=== PATIENT | male | born 1955 | race Caucasian/White ===

== ENCOUNTER → 2018-08-02 | Outpatient (CLI) | payer MEDICARE, OTHER ==
--- NOTE | 2018-08-02 10:05 | PCVCIMAG ---
APPROVED REPORT Study performed: 08/02/2018 08:37:10 EXAM: Comprehensive 2D, Doppler, and color-flow Echocardiogram Patient Location: Echo lab Room #: 3Status: routine BSA: 2.00 HR: 57 bpmBP: 126/72 mmHg Rhythm: NSR Other Information Study Quality: Technically Difficult Indications COPD Dyspnea CAD Peripheral Edema Hx lung Ca w/ radiation, Hx old UT 2D Dimensions IVSd: 13.95 (7-11mm) LVDd: 51.63 mm PWd: 17.72 (7-11mm) LVDs: 35.48 (25-40mm) Left Atrium: 36.98 (27-40mm) LV Single Plane 4CH: 46.65 % LV Single Plane 2CH: 44.55 % Aortic Valve AoV Peak [place].: 0.92 m/s AO Peak Gr.: 3.41 mmHg Left Ventricle The left ventricle is normal size. Basal to mid inferoseptal wakk akinesis.apical Mild concentric left ventricular hypertrophy. Left ventricular systolic function is mild to moderately decreased. LVEF is approximately 40%. All views were off axis for measurement. Right Ventricle The right ventricle is normal size. The right ventricular systolic function is normal. Atria The left atrium size is normal. The right atrium size is normal. Aortic Valve Aortic valve is trileaflet. The aortic valve is normal in structure and function. No aortic regurgitation is present. There is no aortic valvular stenosis. Mitral Valve Mitral valve is not well visualized. There is no mitral valve regurgitation noted. No evidence of mitral valve stenosis. Tricuspid Valve The tricuspid valve is normal in structure. Trace tricuspid regurgitation. Pulmonic Valve The pulmonary valve is normal in structure. There is no pulmonic valvular regurgitation. Great Vessels Ascending aorta is not well visualized. IVC is normal in size and collapses >50% with inspiration. Pericardium There is no pericardial effusion. There is no pleural effusion. <Conclusion> The left ventricle is normal size. Basal to mid inferoseptal wakk akinesis.apical Left ventricular systolic function is mild to moderately decreased. LVEF is approximately 40%. All views were off axis for measurement. The right ventricle is normal size. The left atrium size is normal. Aortic valve is trileaflet. The aortic valve is normal in structure and function. There is no mitral valve regurgitation noted. There is no pericardial effusion.
--- NOTE | 2018-08-02 10:36 | PCVCIMAG ---
EXAM: AORTOILIAC DUPLEX INDICATION: Iliac aneurysm. FINDINGS: AORTA: Suprarenal aorta measures maximum diameter of 2.8 cm. There is not a fusiform infrarenal aortic aneurysm. The infrarenal aorta measures maximum diameter of 2.3 x 2.8 cm. No aortic stenosis. RIGHT COMMON ILIAC ARTERY: Maximum diameter is 1.7 x 2.1 cm. No significant stenosis. RIGHT EXTERNAL ILIAC ARTERY: No significant stenosis. LEFT COMMON ILIAC ARTERY: Maximum diameter is 1.4 x 1.8 cm. No significant stenosis. LEFT EXTERNAL ILIAC ARTERY: No significant stenosis. IMPRESSION: Ectasia infrarenal abdominal aorta measuring up to 2.8 cm in greatest diameter. 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 Ectasia distal left common iliac artery measures 1.8 cm in diameter. LOC:[id number]
== END | disposition home or self-care (01) ==
LOC: PCVCIMAG 08:02
PROVIDERS: ATTEND Internal Medicine Cardiovascular Disease
DX: I25.10 Atherosclerotic heart disease of native coronary artery without angina pectoris (principal); I25.5 Ischemic cardiomyopathy; E78.00 Pure hypercholesterolemia, unspecified; I10 Essential (primary) hypertension; J44.9 Chronic obstructive pulmonary disease, unspecified; I73.9 Peripheral vascular disease, unspecified; I77.811 Abdominal aortic ectasia; I72.3 Aneurysm of iliac artery; Z90.2 Acquired absence of lung [part of]; Z87.891 Personal history of nicotine dependence; Z72.89 Other problems related to lifestyle; Z79.82 Long term (current) use of aspirin
CPT/HCPCS: 80061; 93005; 93308; 93978; G0463

== ENCOUNTER → 2018-09-06 | Outpatient (CLI) | payer MEDICARE, OTHER ==
--- NOTE | 2018-09-06 15:52 | PCVCIMAG ---
EXAM: BILATERAL LOWER EXTREMITY ARTERIAL DUPLEX INDICATION: Peripheral Arterial Disease. Leg pain. FINDINGS: Right Leg: Common femoral profunda femoral arteries are patent. Superficial femoral artery. Increased systolic velocity 192 cm/s mid [place] popliteal artery increased from 47 cm/s consistent with 60-70% stenosis. Anterior tibial, peroneal, and posterior tibial arteries are patent. Left Leg: Satisfactory arterial waveforms throughout the common/profunda/superficial femoral, popliteal, anterior tibial, peroneal, and posterior tibial arteries. No flow limiting stenosis seen. IMPRESSION: 60-70% stenosis mid navajo right popliteal artery. Otherwise no flow limiting stenosis in the right lower extremity. No flow limiting stenosis in the left lower extremity. LOC:[id number]
== END | disposition home or self-care (01) ==
LOC: PCVCIMAG 13:19
PROVIDERS: ATTEND Internal Medicine Cardiovascular Disease
DX: I73.9 Peripheral vascular disease, unspecified (principal); I25.10 Atherosclerotic heart disease of native coronary artery without angina pectoris; I25.5 Ischemic cardiomyopathy; J44.9 Chronic obstructive pulmonary disease, unspecified; E78.00 Pure hypercholesterolemia, unspecified; I10 Essential (primary) hypertension; Z90.2 Acquired absence of lung [part of]; Z87.891 Personal history of nicotine dependence; Z79.82 Long term (current) use of aspirin
CPT/HCPCS: 80061; 93005; 93925; G0463

== ENCOUNTER → 2018-11-30 | Outpatient (CLI) | payer MEDICARE, OTHER | END | disposition home or self-care (01) | LOC: PCVCCLINIC 11:37 | PROVIDERS: ATTEND Internal Medicine Cardiovascular Disease | DX: I25.118 Atherosclerotic heart disease of native coronary artery with other forms of angina pectoris (principal); I71.9 Aortic aneurysm of unspecified site, without rupture; J44.9 Chronic obstructive pulmonary disease, unspecified; E78.00 Pure hypercholesterolemia, unspecified; I10 Essential (primary) hypertension; I25.5 Ischemic cardiomyopathy; I73.9 Peripheral vascular disease, unspecified; Z90.2 Acquired absence of lung [part of]; Z87.891 Personal history of nicotine dependence; Z79.82 Long term (current) use of aspirin | CPT/HCPCS: 93005; G0463 ==

== ENCOUNTER → 2019-03-01 | Outpatient (CLI) | payer MEDICARE, OTHER ==
[~2019-03-01] MED LIST: AMINOPHYLLINE 250 MG/10 ML VIAL. ONE; REGADENOSON 0.4 MG/5 ML DISP.SYRIN. IV ONE
--- NOTE | 2019-03-01 17:31 | PCVCIMAG ---
APPROVED REPORT Imaging Protocol: Rest Tc-99m/Stress Tc-99m 1 day Study performed: 03/01/2019 09:57:04 Indication: CAD, Dyspnea, ICM, Three Vessel Disease Patient Location: Out-Patient Stress Nurse: Monica Driscoll RN, Lisa Morrison RN [place] Tech:Golden RoseNICOLE Ht: 5 ft 10 in Wt: 187 lbs BSA: 2.03 m2 HR: 66 bpm BP: 148/80 mmHg BMI: 26.8 Rhythm: Sinus Rhythm, ST and T Abnormality Medical History Medical History: Age, Hyperlipidemia, HTN, PVD, COPD, Former Smoker Medications: ASA, Plavix, Zetia, Losartan, Toprol XL, Crestor Allergies: Atorva Previous Cardiac Procedures: PCI Pretest Chest Pain Characteristics: No chest pain Exercise History: Sedentary Resting Data Rest SPECT myocardial perfusion imaging was performed in supine position 45 minutes following the intravenous injection of 11.2 mCi of Tc-99m Sestamibi. Time of rest injection: 929 Date: 03/01/2019 Administration Route: IV Administration Site: Left AC Pharmacologic Stress Pharmacologic stress test was performed by injecting Regadenoson 0.4 mg IV push over 10-15 seconds immediately followed by the intravenous injection of 32.9 mCi of Tc-99m Sestamibi. Time of stress injection: 1034 Date: 03/01/2019 Administration Route: IV Administration Site: Left AC Gated Stress SPECT was performed 45 minutes after stress injection. The images were gated to evaluate regional wall motion and calculate left ventricular ejection fraction. Stress Test Details Stress Test: Pharmacologic stress testing performed using 0.4 mg of regadenoson per 5 mL given IV over 10 seconds. Reason for pharmacologic stress test: Lung CA. Reversal agent Aminophyline 100 mg, given intravenously for Near syncope. HRMax Heart Rate (APMHR): 155 bpm Resting HR: 66 bpmTarget HR (85% APMHR): 131 bpm Max HR Achieved: 54 bpm % of APMHR: 34 Recovery HR: 68 bpm BP Resting BP: 148/80 mmHg Max BP: 108/57 mmHg Recovery BP: 123/66 mmHg ECG Resting ECG: Sinus Rhythm, nonspecific ST-T abnormalities Stress ECG: Shant - Vagal response Arrhythmia: PVC's Recovery ECG: Sinus Rhythm, nonspecific ST-T abnormalities Clinical Reason for Termination: Completed protocol Stress Symptoms: Abdominal discomfort, Nausea, Headache Exercise duration: min 55 sec Symptoms resolved during recovery with aminophylline. Stress ECG Conclusion ECG: Non-ischemic Study Quality Study: Good Study Data Post stress, the left ventricular ejection was 43%.. SSS: 21 SRS: 24 SDS: 1 TID = 1.00. Perfusion No evidence of stress induced ischemia. 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 Old complete infarct involving the mid/apical anteroseptal wall of the left ventricle with no migdalia-infarct ischemia. Wall Motion Mildly decreased left ventricular systolic function. Nuclear Conclusion No evidence of stress induced ischemia. 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 Old complete infarct involving the mid/apical anteroseptal wall of the left ventricle with no migdalia-infarct ischemia. Post stress, the left ventricular ejection was 43%. No prior study available for comparison. Interpreted by: Bairon Singh MD Electronically Approved: 03/01/2019 12:14:28 <Conclusion> ECG: Non-ischemic
== END | disposition home or self-care (01) ==
LOC: PCVCIMAG 09:30
PROVIDERS: ATTEND Internal Medicine Cardiovascular Disease
DX: I25.10 Atherosclerotic heart disease of native coronary artery without angina pectoris (principal); R06.00 Dyspnea, unspecified; I10 Essential (primary) hypertension; E78.00 Pure hypercholesterolemia, unspecified; J44.9 Chronic obstructive pulmonary disease, unspecified; Z87.891 Personal history of nicotine dependence
CPT/HCPCS: 36415; 78452; 80061; 93017; A9500; G0463; J0280; J2785

== ENCOUNTER → 2019-06-01 | Outpatient (CLI) | payer MEDICARE, OTHER | END | disposition home or self-care (01) | LOC: PCVCCLINIC 12:50 | PROVIDERS: ATTEND Internal Medicine Cardiovascular Disease | DX: I25.10 Atherosclerotic heart disease of native coronary artery without angina pectoris (principal); I10 Essential (primary) hypertension; E78.00 Pure hypercholesterolemia, unspecified; J44.9 Chronic obstructive pulmonary disease, unspecified | CPT/HCPCS: 93005; G0463 ==